=== PATIENT | female | born 2000 | race American Indian/Alaskan Native ===

== ENCOUNTER 2018-08-22 18:28 | Emergency (ER) | payer SELFPAY ==
--- NOTE | 2018-08-22 23:19 | Emergency Department Report ---
ED ENT HPI - General Chief complaint: Sore Throat Stated complaint: NAUSEA/SORE THROAT Time Seen by Provider: 08/22/18 22:19 Source: patient Mode of arrival: Ambulatory Limitations: No Limitations - History of Present Illness Initial comments: 20 0 after [place] female presents to the emergency room for sore throat times one week and nausea 1 week. Patient took a Plan B by mouth 1 day prior to developing her symptoms. Patient reports that her last menstrual period was 07/2018. She reports her sore throat is not out of 10. She has been taking ibuprofen but she reports does not help. She denies any fever or chills no vomiting but does admit to nausea. She has no past medical history currently takes no medications on a daily basis and has no known drug allergies. complaint: sore throat -: week(s) (1) Location: throat Severity scale (0 -10): 9 Quality: sharp Consistency: constant Improves with: none Worsens with: swallowing Associated Symptoms: sore throat - Related Data Previous Rx's Medication Instructions Recorded Last Taken Type Cetirizine HCl [ZyrTEC] 10 mg PO QDAY #30 capsule 08/23/18 Unknown Rx Fluticasone [Flonase] 1 spray NS QDAY #1 bottle 08/23/18 Unknown Rx Ibuprofen [Motrin 600 MG tab] 600 mg PO Q8H PRN #30 tablet 08/23/18 Unknown Rx Allergies Allergy/AdvReac Type Severity Reaction Status Date / Time No Known Allergies Allergy Verified 06/09/14 20:12 ED Dental HPI - General Chief complaint: Sore Throat Stated complaint: NAUSEA/SORE THROAT Time Seen by Provider: 08/22/18 22:19 Source: patient Mode of arrival: Ambulatory Limitations: No Limitations - History of Present Illness MD complaint: tooth pain - Related Data Previous Rx's Medication Instructions Recorded Last Taken Type Cetirizine HCl [ZyrTEC] 10 mg PO QDAY #30 capsule 08/23/18 Unknown Rx Fluticasone [Flonase] 1 spray NS QDAY #1 bottle 08/23/18 Unknown Rx Ibuprofen [Motrin 600 MG tab] 600 mg PO Q8H PRN #30 tablet 08/23/18 Unknown Rx Allergies Allergy/AdvReac Type Severity Reaction Status Date / Time No Known Allergies Allergy Verified 06/09/14 20:12 ED Review of Systems ROS: Stated complaint: NAUSEA/SORE THROAT Other details as noted in HPI Comment: All other systems reviewed and negative Constitutional: denies: chills, fever ENT: throat pain Respiratory: denies: cough, shortness of breath, wheezing Cardiovascular: denies: chest pain, palpitations Gastrointestinal: nausea. denies: vomiting Genitourinary: denies: urgency, dysuria, discharge Musculoskeletal: denies: back pain, joint swelling, arthralgia Skin: denies: rash, lesions Neurological: denies: headache, weakness, paresthesias Psychiatric: denies: anxiety, depression Hematological/Lymphatic: denies: easy bleeding, easy bruising ED Past Medical Hx - Past Medical History Previous Medical History?: No - Surgical History Past Surgical History?: No - Social History Smoking Status: Never Smoker Substance Use Type: None - Medications Home Medications: Home Medications Medication Instructions Recorded Confirmed Last Taken Type Cetirizine HCl [ZyrTEC] 10 mg PO QDAY #30 capsule 08/23/18 Unknown Rx Fluticasone [Flonase] 1 spray NS QDAY #1 bottle 08/23/18 Unknown Rx Ibuprofen [Motrin 600 MG tab] 600 mg PO Q8H PRN #30 tablet 08/23/18 Unknown Rx ED Physical Exam - General Limitations: No Limitations General appearance: alert, in no apparent distress - Head Head exam: Present: atraumatic, normocephalic - Eye Eye exam: Present: EOMI - ENT ENT exam: Present: mucous membranes moist, TM's normal bilaterally - Expanded ENT Exam Expanded Throat exam: Positive: tonsillar erythema. Negative: tonsillomegaly, tonsillar exudate - Neck Neck exam: Present: normal inspection, full ROM. Absent: lymphadenopathy - Respiratory Respiratory exam: Present: normal lung sounds bilaterally. Absent: respiratory distress - Cardiovascular Cardiovascular Exam: Present: regular rate, normal rhythm. Absent: systolic murmur, diastolic murmur, rubs, gallop - GI/Abdominal GI/Abdominal exam: Present: soft, normal bowel sounds - Extremities Exam Extremities exam: Present: normal inspection, full ROM - Neurological Exam Neurological exam: Present: alert, oriented X3 - Psychiatric Psychiatric exam: Present: normal affect, normal mood - Skin Skin exam: Present: warm, dry, intact, normal color. Absent: rash ED Course Vital Signs 08/22/18 08/22/18 19:06 23:32 Respiratory 18 Rate Blood Pressure 121/77 [Right] ED Medical Decision Making - Medical Decision Making Patient has been evaluated by this provider fast track. Urine test ordered rapid strep test has been ordered. Patient will be given Tylenol 3 for pain management. Critical care attestation.: If time is entered above; I have spent that time in minutes in the direct care of this critically ill patient, excluding procedure time. ED Disposition Clinical Impression: Allergic rhinitis Qualifiers: Allergic rhinitis trigger: unspecified Allergic rhinitis seasonality: unspecified Qualified Code(s): J30.9 - Allergic rhinitis, unspecified Disposition: TO HOME OR SELFCARE Is pt being admited?: No Does the pt Need Aspirin: No Condition: Stable Instructions: Allergic Rhinitis (ED) Additional Instructions: Please take medication as prescribed. All test were negative. Symptoms persist follow up with the primary care provider. Prescriptions: Cetirizine HCl [ZyrTEC] 10 mg PO QDAY #30 capsule Fluticasone [Flonase] 1 spray NS QDAY #1 bottle Ibuprofen [Motrin 600 MG tab] 600 mg PO Q8H PRN #30 tablet PRN Reason: Pain Referrals: PRIMARY CARE, [Primary Care Provider] - 3-5 Days [facility] [Provider Group] - 3-5 Days Forms: Work/School Release Form(ED)
[2018-08-22] MEDS ORDERED: TYLENOL #3 PO ONE (23:20)
[2018-08-22 23:59] LABS: HCG Qualitative,Urine Negative (Negative)
[2018-08-23 00:23] VITALS: BP 120/74
== END 2018-08-23 00:23 | disposition home or self-care (01) ==
LOC: ED 18:28
DX: J30.9 Allergic rhinitis, unspecified (principal)
CPT/HCPCS: 81025; 87116; 87430; 99283

== ENCOUNTER 2019-03-08 20:52 | Outpatient (CLI) | payer OTHER ==
[2019-03-08] MEDS ORDERED: LACTATED RINGERS 1,000 ML IV ONE (20:55)
[2019-03-10 17:53] VITALS: BP 97/62
== END 2019-03-08 22:02 | disposition home or self-care (01) ==
LOC: TRG 20:52
PROVIDERS: ATTEND Obstetrics & Gynecology
DX: O47.02 False labor before 37 completed weeks of gestation, second trimester (principal); Z3A.22 22 weeks gestation of pregnancy